=== PATIENT | male | born 2000 | race African-American/Black ===

== ENCOUNTER 2021-05-22 12:32 | Emergency (ER) | payer BC ==
--- NOTE | 2021-05-22 13:06 | EDM.PDOC ---
ED HPI GENERAL MEDICAL PROBLEM - General Chief Complaint: ENT Problem Stated Complaint: SORE THROAT CHEST PAIN Time Seen by Provider: 05/22/21 12:40 Source of Information: Reports: Patient History Limitations: Reports: No Limitations - History of Present Illness INITIAL COMMENTS - FREE TEXT/NARRATIVE: 21-year-old male presents emergency department today with complaints of a sore throat that started approximately 3 days ago. He denies any fever, chills, nausea, vomiting or diarrhea. He denies any headache. He states he has had a lot of sinus congestion with pressure noted in his upper teeth. He states that when he lays down at night and gets up first thing in the morning he does notice a cough. States he was seen at the walk-in clinic this morning and they directed him to come to the ER due to his complaints of chest pain noted with a cough. Patient states he is otherwise healthy and does not take any prescription medications. Patient states he has not taken any Tylenol or ibuprofen due to the fact that he does not like to take medications. He does not have a primary care provider as he has just moved to [facility] recently. Denies history of smoking. Throat Pain Score (Numeric/FACES): 7 - Related Data Allergies Allergy/AdvReac Type Severity Reaction Status Date / Time No Known Allergies Allergy Verified 05/22/21 12:48 Home Meds: Home Meds . [No Known Home Meds] 05/22/21 [History] Past Medical History - Past Surgical History Musculoskeletal Surgical History: Reports: Other (See Below) Other Musculoskeletal Surgeries/Procedures:: knee surgery Social & Family History - Tobacco Use Tobacco Use Status *Q: Never Tobacco User ED ROS ENT - Review of Systems Review Of Systems: Comprehensive ROS is negative, except as noted in HPI. ED EXAM, ENT - Physical Exam Exam: See Below Exam Limited By: No Limitations General Appearance: Alert, WD/WN, No Apparent Distress Ears: Normal External Exam, Hearing Grossly Normal Nose: Normal Inspection, Normal Mucousa Mouth/Throat: Normal Inspection, Normal Gums, Normal Lips, Normal Teeth, Phar yngeal Erythema Head: Atraumatic, Normocephalic Neck: Normal Inspection, Supple, Non-Tender. No: Lymphadenopathy (L), Lymphadenopathy (R) Respiratory/Chest: No Respiratory Distress, Lungs Clear, Normal Breath Sounds, No Accessory Muscle Use, Chest Non-Tender Cardiovascular: Normal Peripheral Pulses, Regular Rate, Rhythm, No Edema, No Murmur GI/Abdominal: Normal Bowel Sounds, Soft, Non-Tender, No Distention (Male) Exam: Deferred Rectal (Males) Exam: Deferred Back: Normal Inspection Extremities: Normal Inspection Neurological: Alert, Oriented, Normal Cognition Psychiatric: Normal Affect, Normal Mood Skin: Warm, Dry, Intact, Normal Color, No Rash Lymphatic: No Adenopathy Course - Vital Signs Text/Narrative:: Exam reveals an awake alert and oriented male who does not appear to be in any distress. Bilateral tympanic membranes are unremarkable. Very difficult to visualize tonsils and oropharynx due to very thick tongue and Mallampati score of 4. Do not appreciate any cervical lymphadenopathy or tonsillar lymphadenopathy. Lung sounds are clear and heart rate is regular. Abdomen is soft and nontender. Will obtain Covid, influenza and strep a testing. Last Recorded V/S: Last Vital Signs Temp 97.4 F 05/22/21 12:45 Pulse 68 05/22/21 12:45 Resp 18 05/22/21 12:45 BP 136/101 H 05/22/21 12:45 Pulse Ox 100 05/22/21 12:45 - Orders/Labs/Meds Labs: Laboratory Tests 05/22/21 05/22/21 Range/Units 12:55 12:55 Influenza Type A RNA Negative (NEGATIVE) RSV RNA (INAAT) Negative (NEGATIVE) Influenza Type B RNA Negative (NEGATIVE) SARS-CoV-2 RNA (ANNETTA) Negative (NEGATIVE) Group A Strep (PCR) Not detected (NOT DETECT) - Re-Assessments/Exams Free Text/Narrative Re-Assessment/Exam: 05/22/21 14:04 Patient's Covid, influenza and strep tests are all negative. He will be discharged home with recommendations that he take Tylenol every 4 hours as needed for fever or discomfort. Recommend that he take Sudafed for the label instructions for his sinus pressure and congestion. Symptoms are likely due to viral infection and should resolve within 10 days time. If they have not recommend he follow-up with a primary care provider for reevaluation. Departure - Departure Time of Disposition: 14:04 Disposition: Home, Self-Care 01 Condition: Good Clinical Impression: Viral upper respiratory tract infection with cough - Discharge Information Instructions: Viral Respiratory Infection, [id number] Referrals: PCP,Not In Area [Primary Care Provider] - Forms: ED Department Discharge Additional Instructions: You were seen in emergency department today with complaints of a sore throat and occasional cough with associated sinus pressure and ear pressure. As discussed exam is essentially unremarkable. However you were tested for Covid, influenza and strep throat. All these test did come back negative. You likely have a viral upper respiratory tract infection causing her symptoms. This should resolve within 10 days time. Recommend that you take Tylenol 650 mg as needed every 4 hours for fever or discomfort. Again, recommend getting Sudafed from a local pharmacy, [facility] is open from noon until 4 PM today see you can purchase it there. Take this medication per label instructions and this should help to resolve your sinus and ear pressure. If you are not better in 10 days time. Recommend follow-up with your primary care provider for reevaluation. Should your condition worsen or change, do not hesitate returning to the emergency department. Sepsis Event Note (ED) - Evaluation Sepsis Screening Result: No Definite Risk - Focused Exam Vital Signs: Vital Signs Temp Pulse Resp BP Pulse Ox 05/22/21 12:45 97.4 F 68 18 136/101 H 100
[2021-05-22 13:48] LABS: CORONAVIRUS COVID-19 NAA NEGATIVE (NEGATIVE)
== END 2021-05-22 14:34 | disposition home or self-care (01) ==
LOC: JD.ED 12:32
DX: J06.9 Acute upper respiratory infection, unspecified (principal); Z20.822 Contact with and (suspected) exposure to COVID-19
CPT/HCPCS: 0241U; 87651; 99283

== ENCOUNTER 2021-05-29 19:06 | Emergency (ER) | payer BC ==
[2021-05-29 20:02] LABS: CORONAVIRUS COVID-19 NAA NEGATIVE (NEGATIVE)
--- NOTE | 2021-05-29 20:20 | EDM.PDOC ---
ED HPI GENERAL MEDICAL PROBLEM - General Chief Complaint: Respiratory Problem Stated Complaint: SOB, CHEST PAIN, COUGH Time Seen by Provider: 05/29/21 19:44 Source of Information: Reports: Patient, Family () History Limitations: Reports: No Limitations - History of Present Illness INITIAL COMMENTS - FREE TEXT/NARRATIVE: Mr. Khan is a most pleasant 21-year-old gentleman who now presents to the ED stating that he has had cold-like symptoms for the past 11 days, including a nonproductive cough, chest congestion, and a sore throat that developed on 05/18/2021. His cough and chest congestion are still present, although his sore throat resolved 05/27/2020. He then developed a fever, with a T-max of 102 degrees, along with chills, nausea, and watery diarrhea today. He states that he has been feeling fatigued. The patient has been taking Sudafed and EmergenC, which have not been helping. Medical records indicate that the patient was seen in this ED 1 week ago today, on 05/22/2020, stating that he had had a sore throat, sinus congestion, and chest pain with a cough that began on , 05/19/2021. He was found to be hemodynamically stable, afebrile, saturating 100% on room air. His physical exam was unremarkable. Work-up included a swab for the SARS-CoV-2 virus, influenza A + B viruses, and RSV, along with a strep test, all of which were negative. He was discharged home with the recommendation that he take OTC acetaminophen and Sudafed, then follow-up with the PCP if his symptoms persisted. At [facility], the patient's initial BP was found to be modestly elevated at 150/106, with tachycardia 120 bpm. He has a fever of 102.2 degrees and an oxygen saturation of 100% on room air. He appears to be comfortable, in no acute distress. The patient denies having recent ear pain, nasal or sinus congestion, dyspnea, chest pain, palpitations, vomiting, constipation, abdominal pain, urinary symptoms, recent weight gain or weight loss, recent bloody bowel movements or black bowel movements, recent joint aches, headaches, or rashes. The patient's PCP is Dr. Carla Carrasco. He has received a single Moderna COVID vaccination, although no influenza vaccination this season. Generalized Pain Score (Numeric/FACES): 5 - Related Data Allergies Allergy/AdvReac Type Severity Reaction Status Date / Time naproxen [From Naprosyn] Allergy Facial Verified 05/29/21 19:36 Swelling Home Meds: Home Meds . [No Known Home Meds] 05/22/21 [History] Past Medical History Endocrine/Metabolic History: Reports: Obesity/BMI 30+ - Infectious Disease History Infectious Disease History: Reports: Novel Coronavirus (dx'd 02/08/2020 AND 02/06/2021) - Past Surgical History HEENT Surgical History: Reports: Tonsillectomy Musculoskeletal Surgical History: Reports: Arthroscopic Knee (left) Oncologic Surgical History: Reports: Other (See Below) (Lymph node biopsy) Social & Family History - Tobacco Use Tobacco Use Status *Q: Never Tobacco User Second Hand Smoke Exposure: No - Caffeine Use Caffeine Use: Reports: None - Alcohol Use Alcohol Use History: Yes Alcohol Use Frequency: Rarely - Recreational Drug Use Recreational Drug Use: No - Living Situation & Occupation Living situation: Reports: , with Spouse Occupation: Employed ([employer]) ED ROS GENERAL - Review of Systems Review Of Systems: Comprehensive ROS is negative, except as noted in HPI. ED EXAM, GENERAL - Physical Exam Exam: See Below Exam Limited By: No Limitations General Appearance: Alert, WD/WN, No Apparent Distress Eye Exam: Bilateral Eye: EOMI, Normal Inspection Ears: Normal External Exam, Hearing Grossly Normal Nose: Normal Inspection Throat/Mouth: Normal Inspection, Normal Lips, Normal Voice, No Airway Compromise Head: Atraumatic, Normocephalic Neck: Normal Inspection, Full Range of Motion Respiratory/Chest: No Respiratory Distress, Lungs Clear, Normal Breath Sounds, No Accessory Muscle Use. No: Decreased Breath Sounds, Crackles, Rhonchi, Wheezing, Stridor, Prolonged Expiration Cardiovascular: Normal Peripheral Pulses, No Edema, No Gallop, No JVD, No Murmur, No Rub, Tachycardia (regular) Peripheral Pulses: 3+: Radial (L), Radial (R) GI/Abdominal: Normal Bowel Sounds, Soft, No Organomegaly, No Distention, No Abnormal Bruit, No Mass, Tender (mild, generalized, non-focal) Back Exam: Normal Inspection, Full Range of Motion, NT Extremities: Normal Inspection, Normal Range of Motion, No Pedal Edema, Normal Capillary Refill Neurological: Alert, Oriented, Normal Cognition, No Motor/Sensory Deficits Psychiatric: Normal Affect Skin Exam: Warm, Dry, Intact, Normal Color, No Rash Course - Vital Signs Last Recorded V/S: Last Vital Signs Temp 39.0 C H 05/29/21 19:34 Pulse 120 H 05/29/21 19:34 Resp 15 05/29/21 19:34 BP 150/106 H 05/29/21 19:34 Pulse Ox 100 05/29/21 19:34 Orthostatic Blood Pressure [ 117/80 Standing] Orthostatic Blood Pressure [ 127/82 Supine] - Orders/Labs/Meds Orders: Active Orders 24 hr Category Date Time Status Chest 2V [CR] Stat Exams 05/29/21 20:11 Taken BLOOD CULTURE [MREF] Stat Lab 05/29/21 20:35 Received BLOOD CULTURE [MREF] Stat Lab 05/29/21 20:45 Received Blood Culture x2 Reflex Set [OM.PC] Stat Oth 05/29/21 20:12 Ordered Labs: Laboratory Tests 05/29/21 05/29/21 05/29/21 Range/Units 19:14 20:35 20:35 WBC 9.14 H (4.23-9.07) K/mm3 RBC 5.29 (4.63-6.08) M/mm3 Hgb 14.6 (13.7-17.5) gm/dl Hct 43.4 (40.1-51.0) % MCV 82.0 (79.0-92.2) fl MCH 27.6 (25.7-32.2) pg MCHC 33.6 (32.2-35.5) g/dl RDW Std Deviation 38.8 (35.1-43.9) fL Plt Count 384 H (163-337) K/mm3 MPV 8.8 L (9.4-12.3) fl Neutrophils % (Manual) 66 H (40-60) % Band Neutrophils % 1 (0-10) % Lymphocytes % (Manual) 26 (20-40) % Atypical Lymphs % 0 % Monocytes % (Manual) 4 (2-10) % Eosinophils % (Manual) 3 (0.8-7.0) % Basophils % (Manual) 0 L (0.2-1.2) Platelet Estimate Adequate RBC Morph Comment Normal Sodium 138 (136-145) mEq/L Potassium 3.5 (3.5-5.1) mEq/L Chloride 100 (98-107) mEq/L Carbon Dioxide 29 (21-32) mEq/L Anion Gap 12.5 (5-15) BUN 8 (7-18) mg/dL Creatinine 1.2 (0.7-1.3) mg/dL Est Cr Clr Drug Dosing 102.84 mL/min Estimated GFR (MDRD) > 60 (>60) mL/min BUN/Creatinine Ratio 6.7 L (14-18) Glucose 83 (70-99) mg/dL Calcium 9.7 (8.5-10.1) mg/dL C-Reactive Protein 3.4 H* (<1.0) mg/dL Influenza Type A RNA Positive H (NEGATIVE) RSV RNA (INAAT) Negative (NEGATIVE) Influenza Type B RNA Negative (NEGATIVE) SARS-CoV-2 RNA (ANNETTA) Negative (NEGATIVE) - Re-Assessments/Exams Free Text/Narrative Re-Assessment/Exam: 05/29/21 20:17 A swab for the SARS-CoV-2 virus, influenza A + B viruses, and RSV was collected at triage. I have ordered orthostatics (since he is tachycardic), some blood work, 2 sets of blood cultures, and a chest x-ray. 05/29/21 20:44 Two-view chest radiograph appears to be grossly normal. The cardiac silhouette is within normal limits. No pulmonary vascular congestion. No pleural effusions. No focal infiltrate. No pneumothorax. Formal read per the Radiologist pending. The patient's swab for the SARS-CoV-2 virus, influenza A + B viruses, and RSV returned positive for influenza A, with the others being negative. 05/29/21 21:19 The patient is not orthostatic. His CBC is remarkable for slight leukocytosis of 9.14 and thrombocytosis of 384,000, with the remainder of his CBC being unremarkable. His BMP is unremarkable. His CRP is mildly elevated at 3.4. 05/29/21 21:24 Test results discussed with the patient and his . As above, the patient has influenza A. Given the duration of his symptoms, Tamiflu would not likely be of any benefit. I am recommending that he stay adequately hydrated and take ibuprofen as needed for discomfort. I advised him to avoid [id number] cough or cold remedies. He will be provided with a note to be off work for an additional 5 days. Departure - Departure Time of Disposition: 21:24 Disposition: Home, Self-Care 01 Condition: Good Clinical Impression: Influenza A - Discharge Information *PRESCRIPTION DRUG MONITORING PROGRAM REVIEWED*: Not Applicable *COPY OF PRESCRIPTION DRUG MONITORING REPORT IN PATIENT SILVIO: Not Applicable Instructions: Influenza, Adult Referrals: Carla Carrasco MD [Primary Care Provider] - Forms: ED Department Discharge, ED Return to Work/School Form Additional Instructions: You were seen in the emergency room for a dry cough with congestion since 05/18/2021, followed by fever with chills, nausea, diarrhea, and fatigue today. Work-up in the ER included positional blood pressure checks, several blood tests, 2 sets of blood cultures, a swab for the SARS-CoV-2 virus, influenza A + B viruses, and RSV, and a chest x-ray. Your swab for influenza A returned positive, while the remainder of your work was unremarkable. As discussed, given the duration of your symptoms, it is likely too late to derive any benefit from being treated with Tamiflu. Going forward, we recommend that you stay adequately hydrated and take [id number] ibuprofen as needed for discomfort. Because you have had diarrhea, you should probably not drink juice or milk, as they may make your diarrhea worse. We recommend a bland diet, such as rice or oatmeal. Chicken noodle soup with saltine crackers is an excellent choice. As discussed, we do not recommend that you take any gkug-psz-[id number] cough or cold remedies, as they have been shown to be of no benefit, but do have side effects, such as an upset stomach. A note to be off work through 06/04/2021 has been provided. If any other problems, please do not hesitate to return to the ER. Sepsis Event Note (ED) - Focused Exam Vital Signs: Vital Signs Temp Pulse Resp BP Pulse Ox 05/29/21 19:34 39.0 C H 120 H 15 150/106 H 100 - My Orders Last 24 Hours: My Active Orders 05/29/21 20:11 Chest 2V [CR] Stat 05/29/21 20:12 Blood Culture x2 Reflex Set [OM.PC] Stat 05/29/21 20:35 BLOOD CULTURE [MREF] Stat 05/29/21 20:45 BLOOD CULTURE [MREF] Stat - Assessment/Plan Last 24 Hours: My Active Orders 05/29/21 20:11 Chest 2V [CR] Stat 05/29/21 20:12 Blood Culture x2 Reflex Set [OM.PC] Stat 05/29/21 20:35 BLOOD CULTURE [MREF] Stat 05/29/21 20:45 BLOOD CULTURE [MREF] Stat
--- NOTE | 2021-05-30 09:26 | CR ---
EXAM: XR CHEST 2 VIEWS LOCATION: [facility] DATE/TIME: 05/29/2021 8:22 PM INDICATION: Non-productive cough COMPARISON: None. IMPRESSION: Negative chest. SIGNED BY: Adelso New MD 05/29/2021 9:39 PM [facility]
== END 2021-05-29 22:00 | disposition home or self-care (01) ==
LOC: JD.ED 19:06
DX: J10.1 Influenza due to other identified influenza virus with other respiratory manifestations (principal); E66.9 Obesity, unspecified; Z68.39 Body mass index [BMI] 39.0-39.9, adult; Z88.6 Allergy status to analgesic agent; Z20.822 Contact with and (suspected) exposure to COVID-19
CPT/HCPCS: 0241U; 36415; 71046; 80048; 85007; 85027; 86140; 87040; 99283

== ENCOUNTER 2021-06-08 13:43 | Emergency (ER) | payer BC | END 2021-06-08 16:28 | disposition home or self-care (01) | LOC: JD.ED 13:43 | DX: R07.89 Other chest pain (principal); R00.2 Palpitations; E66.9 Obesity, unspecified; Z88.5 Allergy status to narcotic agent; Z68.38 Body mass index [BMI] 38.0-38.9, adult | CPT/HCPCS: 36415; 80053; 83735; 84484; 85025; 85379; 85610; 85730; 93005; 93225; 93226; 99285-25 ==